=== PATIENT | female | born 1950 | race American Indian/Alaskan Native ===

== ENCOUNTER 2017-05-15 20:59 | Emergency (ER) | payer MEDICARE ==
[2017-05-15 21:21] VITALS: RESP 20
[2017-05-15] MEDS ORDERED: Naproxen 550 mg Tab PO STA (22:00)
[2017-05-15] MEDS ORDERED: Naproxen 550 mg Tab PO ONE (22:04)
--- NOTE | 2017-05-15 22:43 | C.PDOC ---
History Of Present Illness 67 year old female presents to the ER complaining of left hip pain for the past 1 month. Today pain began radiating to the left buttock/thigh/upper leg region. No imaging has been done. Fall/injury was sustained 1 month ago. Patient denies any new fall or injury. No weakness or numbness. Time Seen by Provider: 05/15/17 21:39 Chief Complaint (Nursing): Hip Pain History Per: Patient History/Exam Limitations: no limitations Onset/Duration Of Symptoms: Days (x 1 month) Current Symptoms Are (Timing): Still Present Past Medical History Reviewed: Historical Data, Nursing Documentation, Vital Signs Vital Signs: Last Vital Signs Temp 98 F 05/15/17 22:50 Pulse 71 05/15/17 22:50 Resp 20 05/15/17 22:50 BP 164/74 H 05/15/17 22:50 Pulse Ox 96 05/16/17 05:57 - Medical History PMH: Diabetes (type II), HTN, Hypercholesterolemia Family History: States: No Known Family Hx - Social History Hx Alcohol Use: No Hx Substance Use: No - Immunization History Hx Tetanus Toxoid Vaccination: No Hx Influenza Vaccination: Yes Hx Pneumococcal Vaccination: Yes Review Of Systems Except As Marked, All Systems Reviewed And Found Negative. Musculoskeletal: Positive for: Other (left hip pain radiating to left buttocks/ upper leg) Neurological: Negative for: Weakness, Numbness Physical Exam - Physical Exam Appears: Non-toxic, No Acute Distress Skin: Normal Color, Warm, Dry Head: Atraumatic, Normacephalic Eye(s): bilateral: Normal Inspection, PERRL, EOMI Nose: Normal Oral Mucosa: Moist Chest: Symmetrical Cardiovascular: Rhythm Regular, No Murmur Respiratory: Normal Breath Sounds, No Accessory Muscle Use Gastrointestinal/Abdominal: Soft, No Tenderness, No Distention Back: Normal Inspection, No CVA Tenderness, No Vertebral Tenderness Extremity: Normal ROM, Tenderness (to the left hip mild and left buttocks), No Deformity, No Swelling, Other (Strength is 5/5 throughout) Neurological/Psych: Oriented x3, Normal Speech, Normal Motor, Normal Sensation, Other (Patient is ambulatory [facility]) Gait: Steady ED Course And Treatment O2 Sat by Pulse Oximetry: 96 (RA) Pulse Ox Interpretation: Normal - Other Rad left hip X-Ray: Interpreted by Me (fx or dioslocation), Viewed By Me Progress Note: Patient given 550 mg naproxen PO. X-ray of left hip ordered. Pt informed of negative X-ray findings. Stable for d/c home. Reassessment Condition: Improved (feels better after meds and is fully ambulaory in ED. Pt advised follow up with pMD for further evvaluation. 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 - Scribe Statement The provider has reviewed the documentation as recorded by the Scribe (Mercedes Mcclellan) All medical record entries made by the Scribe were at my direction and personally dictated by me. I have reviewed the chart and agree that the record accurately reflects my personal performance of the history, physical exam, medical decision making, and the department course for this patient. I have also personally directed, reviewed, and agree with the discharge instructions and disposition.
[2017-05-15 22:51] VITALS: BP 164/74; PULSE 71; TEMP 98
[2017-05-16 05:30] VITALS: O2SAT 96
--- NOTE | 2017-05-16 08:44 | RAD ---
PROCEDURE: Left Hip X-ray Radiographs. HISTORY: pain to left hip COMPARISON: None. FINDINGS: BONES: Normal. No fracture. JOINTS: Unremarkable left hip. 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 SOFT TISSUES: Normal. OTHER FINDINGS: None. IMPRESSION: Unremarkable left hip. Mild osteoarthritis of the right hip.
== END 2017-05-15 22:57 | disposition home or self-care (01) ==
LOC: C.ER 20:59
DX: M54.30 Sciatica, unspecified side (principal)